=== PATIENT | male | born 1975 | race Hispanic/Latino ===

== ENCOUNTER 2021-10-29 13:01 | Emergency (ER) | payer OTHER, SELFPAY | END 2021-10-29 13:55 | disposition home or self-care (01) | LOC: ERS 13:01 | DX: S50.812A Abrasion of left forearm, initial encounter (principal); V43.52XA Car driver injured in collision with other type car in traffic accident, initial encounter; W22.11XA Striking against or struck by driver side automobile airbag, initial encounter; Y92.411 Interstate highway as the place of occurrence of the external cause | CPT/HCPCS: 99284 ==